=== PATIENT | female | born 1995 | race Caucasian/White ===

== ENCOUNTER 2020-12-31 14:02 | Emergency (ER) | payer BC, OTHER, SELFPAY ==
--- NOTE | 2020-12-31 16:22 | ER ---
Nurse's Notes [facility] Name: Zarina Del Real Age: 25 yrs Sex: Female : 1995 Arrival Date: 12/31/2020 Time: 14:09 Bed DX1 Private MD: Diagnosis: Coronavirus infection, unspecified Presentation: 12/31 14:10 Chief complaint: Patient states: "I have a work related injury that happened yesterday. sv I was lifting something heavy yesterday and now I'm having pain from my waist up. And I have a slight fever and cough.". Coronavirus screen: Vaccine status: Patient reports being unvaccinated. At this time, the client does not indicate any symptoms associated with coronavirus-19. Ebola Screen: No symptoms or risks identified at this time. Risk Assessment: Do you want to hurt yourself or someone else? Patient reports no desire to harm self or others. Onset of symptoms was December 30, 2020. 14:10 Method Of Arrival: Ambulatory sv 14:10 Acuity: VALENTINE 4 sv 14:12 Initial Sepsis Screen: Does the patient meet any 2 criteria? HR > 90 bpm. No. Patient's sv initial sepsis screen is negative. Does the patient have a suspected source of infection? No. Patient's initial sepsis screen is negative. Triage Assessment: 14:13 General: Appears in no apparent distress. comfortable, Behavior is calm, cooperative, sv appropriate for age. Pain: Complains of pain in "waist up". Neuro: Level of Consciousness is awake, alert, obeys commands, Oriented to person, place, time, situation, Gait is steady. Respiratory: Respiratory effort is even, unlabored. Historical: - Allergies: 14:12 No Known Allergies; sv - Social history:: Smoking status: Patient denies any tobacco usage or history of. Screenin:28 Abuse screen: Denies threats or abuse. Denies injuries from another. Nutritional kg screening: No deficits noted. Tuberculosis screening: No symptoms or risk factors identified. Fall Risk None identified. Vital Signs: 14:12 BP 136 / 88; Pulse 105; Resp 18; Temp 97.9(TE); Pulse Ox 97% on R/A; Weight 70.31 kg; sv Height 5 ft. 8 in. (172.72 cm); Pain 5/10; 16:34 BP 120 / 78; Pulse 92; Resp 18; Pulse Ox 100% on R/A; kg 14:12 Body Mass Index 23.57 (70.31 kg, 172.72 cm) sv ED Course: 14:09 Patient arrived in ED. ds1 14:09 [facility] Rem[facility]C [facility]. kb 14:09 Arnulfo Zepeda MD is Attending Physician. kb 14:10 Arm band placed on. sv 14:12 Triage completed. sv 15:17 Joan Norris, RN is Primary Nurse. kg 15:28 Patient has correct armband on for positive identification. kg 16:34 No provider procedures requiring assistance completed. Patient did not have IV access kg during this emergency room visit. Administered Medications: No medications were administered Outcome: 16:22 Discharge ordered by MD. kb 16:34 Discharged to home ambulatory. kg 16:34 Condition: good 16:34 Discharge instructions given to patient, Instructed on discharge instructions, follow up and referral plans. Demonstrated understanding of instructions, follow-up care. 16:35 Patient left the ED. kg Signatures: Yessy Remy FNP-C EDUCATION REP-CkMahi Jama, RN RN sv Jud Rodney ds1 Joan Norris, RN RN kg Corrections: (The following items were deleted from the chart) 14:14 14:10 Chief complaint: Patient states: "I have a work related injury that happened sv yesterday. I was lifting something heavy yesterday and now I'm having pain from my waist up. And I have a slight fever." sv 14:14 14:12 BP 136 / 88; Pulse 105bpm; Resp 18bpm; Pulse Ox 97% RA; Temp 97.9F Temporal; sv sv
--- NOTE | 2020-12-31 16:22 | EDPHYS ---
Physician Documentation [facility] Name: Zarina Del Real Age: 25 yrs Sex: Female : 1995 Arrival Date: 12/31/2020 Time: 14:09 Bed DX1 Private MD: ED Physician Arnulfo Zepeda HPI: 12/31 15:48 This 25 yrs old Female presents to ER via Ambulatory with complaints of kb Fever, Pain. 15:48 The patient or guardian reports cough, that is intermittent, described as mild, flu kb symptoms, low-grade fever, myalgias. Onset: The symptoms/episode began/occurred yesterday. Severity of symptoms: At their worst the symptoms were mild, in the emergency department the symptoms are unchanged. Modifying factors: The symptoms are alleviated by nothing, the symptoms are aggravated by nothing. Associated signs and symptoms: Pertinent positives: fever, Pertinent negatives: chest pain, diarrhea, ear ache, nausea, rhinorrhea, sore throat, vomiting. The patient has not experienced similar symptoms in the past. The patient has not recently seen a physician. pt reports she was lifting something over her head yesterday and hurt her shoulders. States she has had pain from the waist up today with fever and cough. Historical: - Allergies: 14:12 No Known Allergies; sv - Social history:: Smoking status: Patient denies any tobacco usage or history of. ROS: 15:48 Cardiovascular: Negative for chest pain, palpitations, and edema. kb 15:48 Constitutional: Positive for body aches, fever, Negative for chills, fatigue, malaise, poor PO intake, weight loss. 15:48 Respiratory: Positive for cough, Negative for dyspnea on exertion, hemoptysis, orthopnea, pleurisy, shortness of breath, sputum production, wheezing. 15:48 MS/extremity: Positive for pain, of the anterior aspect of right shoulder and anterior aspect of left shoulder. Exam: 15:48 Constitutional: This is a well developed, well nourished patient who is awake, alert, kb and in no acute distress. Head/Face: Normocephalic, atraumatic. ENT: Moist Mucous membranes Cardiovascular: Regular rate and rhythm with a normal S1 and S2. No gallops, murmurs, or rubs. No pulse deficits. Respiratory: Respirations even and unlabored. No increased work of breathing, no retractions or nasal flaring. Skin: Warm, dry with normal turgor. Normal color. MS/ Extremity: Pulses equal, no cyanosis. Neurovascular intact. Full, normal range of motion. Neuro: Awake and alert, GCS 15, oriented to person, place, time, and situation. Moves all extremities. Normal gait. Psych: Awake, alert, with orientation to person, place and time. Behavior, mood, and affect are within normal limits. Vital Signs: 14:12 BP 136 / 88; Pulse 105; Resp 18; Temp 97.9(TE); Pulse Ox 97% on R/A; Weight 70.31 kg; sv Height 5 ft. 8 in. (172.72 cm); Pain 5/10; 16:34 BP 120 / 78; Pulse 92; Resp 18; Pulse Ox 100% on R/A; kg 14:12 Body Mass Index 23.57 (70.31 kg, 172.72 cm) sv MDM: 14:15 Patient medically screened. kb 15:26 Data reviewed: vital signs, nurses notes. Data interpreted: Pulse oximetry: on room air kb is 97 %. Interpretation: normal. 16:21 Counseling: I had a detailed discussion with the patient and/or guardian regarding: the kb historical points, exam findings, and any diagnostic results supporting the discharge/admit diagnosis, lab results, the need for outpatient follow up, a family practitioner, to return to the emergency department if symptoms worsen or persist or if there are any questions or concerns that arise at home. 12/31 14:15 Order name: COVID-19 : Document "Date of Symptom Onset" if Symptomatic. kb 12/31 14:15 Order name: COVID-19 : Document "Date of Symptom Onset" if Symptomatic. sv 12/31 16:20 Order name: SARS-COV-2 RT PCR; Complete Time: 16:21 EDMS Administered Medications: No medications were administered Disposition: 17:10 Co-signature as Attending Physician, Arnulfo Zepeda MD. rn Disposition Summary: 12/31/20 16:22 Discharge Ordered Location: Home kb Condition: Stable kb Diagnosis - Coronavirus infection, unspecified kb Followup: kb - With: Emergency Department - When: As needed - Reason: Worsening of condition Followup: kb - With: Private Physician - When: 2 - 3 days - Reason: Recheck today's complaints, Continuance of care, Re-evaluation by your physician Discharge Instructions: - Discharge Summary Sheet kb - Viral Respiratory Infection, [id number] kb - COVID-19 kb Forms: - Medication Reconciliation Form kb - Thank You Letter kb - Antibiotic Education kb - Prescription Opioid Use kb Signatures: Dispatcher [employer] EDYessy Pearson, Mahi Willingham RN RN Arnulfo Funes MD MD salesperson men's furnishings: (The following items were deleted from the chart) 14:16 14:16 CORONAVIRUS ordered. EDMS EDMS 14:16 14:16 CORONAVIRUS ordered. EDMS EDMS 15:10 14:16 CORONAVIRUS ordered. EDMS EDMS
[2020-12-31 16:40] VITALS: TEMP 97.9
[2020-12-31 16:42] VITALS: BP 120/78; O2SAT 100
== END 2020-12-31 16:35 | disposition home or self-care (01) ==
LOC: ER 14:02
DX: U07.1 COVID-19 (principal)
CPT/HCPCS: 99281; U0003